=== PATIENT | male | born 1960 | race Caucasian/White ===

== ENCOUNTER → 2016-11-28 | Outpatient (CLI) | payer BC, OTHER ==
[2016-11-28 19:40] LABS: BLOOD UREA NITROGEN 22 mg/dl (7-18); CALCIUM 8.9 mg/dl (8.5-10.1); CARBON DIOXIDE 29 mmol/L (21-32); CHLORIDE 104 mmol/L (98-107); CREATININE 0.99 mg/dl (0.60-1.40); GLUCOSE 93 mg/dl (70-99); POTASSIUM 3.9 mmol/L (3.5-5.1); SODIUM 141 mmol/L (136-145)
[2016-11-28 20:44] LABS: CHOLESTEROL/HDL RATIO 3.7
== END | disposition home or self-care (01) ==
LOC: C.LABMFLN 11-27 13:51
PROVIDERS: ATTEND Family Medicine
DX: Z13.220 Encounter for screening for lipoid disorders (principal); Z12.5 Encounter for screening for malignant neoplasm of prostate; I10 Essential (primary) hypertension

== ENCOUNTER → 2017-09-19 | Outpatient (CLI) | payer BC ==
--- NOTE | 2017-09-19 08:27 | DIAGNOSTIC IMAGING REPORT ---
RIGHT SHOULDER 3 VIEWS HISTORY: RIGHT SHOULDER PAIN COMPARISON: None. FINDINGS: There is no fracture or dislocation. Soft tissues are unremarkable. No radiopaque foreign bodies. The right clavicle is intact. IMPRESSION: No significant abnormality within the right shoulder. Electronically signed by: Mohinder Ragsdale M.D. 09/19/2017 8:26 AM Dictated Date/Time: 09/19/2017 8:24 AM
== END | disposition home or self-care (01) ==
LOC: C.RDSM 11:48
PROVIDERS: ATTEND Family Medicine
DX: M25.511 Pain in right shoulder (principal)

== ENCOUNTER → 2017-09-28 | Outpatient (CLI) | payer BC ==
[~2017-09-28] MED LIST: GADAVIST IV PRN
--- NOTE | 2017-09-28 10:30 | DIAGNOSTIC IMAGING REPORT ---
R INJECTION SHOULDER PRE MRI FLUOROSCOPY TIME: 38 seconds CLINICAL HISTORY: 56 years-old Male with R SHOULDER PAIN. Acute right shoulder pain status post recent fall PROCEDURE: After obtaining written informed consent, the patient was placed supine on the fluoroscopy table. A suitable site for needle insertion was marked using fluoroscopic guidance. The right shoulder was prepped and draped in the usual sterile fashion. 1% lidocaine was used for skin, subcutaneous and deep soft tissue anesthesia. Under intermittent fluoroscopic guidance, a 22 gauge 2.5 inch spinal needle was inserted into the right glenohumeral joint. A total of 14 cc of one-to-one mixture of dilute Magnevist (0.1 cc in 10 cc saline) and Optiray 300 were injected. The needle was then removed. There were no apparent complications. The patient was transported to for further imaging. IMPRESSION: Fluoroscopic-guided right shoulder arthrogram without immediate complication. MR portion of the examination will be dictated separately. The above report was generated using voice recognition software. It may contain grammatical, syntax or spelling errors. Electronically signed by: Jorge Stevenson M.D. 09/28/2017 10:29 AM Dictated Date/Time: 09/28/2017 10:28 AM
--- NOTE | 2017-09-28 11:41 | DIAGNOSTIC IMAGING REPORT ---
R UPPER EXTREMITY JOINT W/ CLINICAL HISTORY: 56 years-old Male with R SHOULDER PAIN. Acute right shoulder pain with recent fall COMPARISON: Right shoulder radiographs 09/19/2017. TECHNIQUE: Multiplanar, multi sequence MRI of the right shoulder was performed following the intra-articular administration of solution containing 0.1 mL gadolinium. FINDINGS: ROTATOR CUFF: High-grade partial or full-thickness equivalent tear involves the insertional anterior and mid fibers of the supraspinatus, 1.3 x 2.1 cm in transverse and AP dimension as seen on images 8 through 12 of series 5 and image 6 of series 9 likely extending into the conjoined infraspinatus. There is intermediate grade bursal surface tearing of the infraspinatus tendon, 7 x 9 mm as seen on image 13 series 5 with intrasubstance extension nicely seen on the sagittal images. Moderate associated tendinosis. No muscular atrophy of the rotator cuff. Teres minor appears intact. There is at least moderate tendinosis of the subscapularis tendon with low-grade partial-thickness tearing noted involving the inferior insertional fibers as noted on image 11 series 9. Evaluation of the tear is difficult to evaluate secondary to injected contrast within this region. BICEPS TENDON: The longhead biceps tendon is intact. No evidence of tendinosis. The biceps daisy and anchor are intact. LABRUM: Tear of the anteroinferior quadrant labrum is noted without displaced fragment or paralabral cyst. GLENOHUMERAL JOINT: Mild glenohumeral osteoarthritis. No intra-articular loose body. Minimal subcortical cystic change of the humeral head. ACROMIOCLAVICULAR JOINT: Moderate, clavicular osteoarthritis with moderate subacromial/subdeltoid bursitis. Acromium has a gently curved undersurface. OUTLET SPACES: The suprascapular notch and quadrilateral space are without obstructing or space occupying lesions. BONE MARROW: No focal abnormality, fracture or marrow occupying lesion. SOFT TISSUES: The periarticular soft tissues are unremarkable. IMPRESSION: 1. High-grade partial/full thickness equivalent tear of the supraspinous tendon measures up to 1.3 x 2.1 cm. No significant retraction or muscular atrophy. 2. Intermediate grade bursal surface tear of the infraspinatus tendon. 3. Mild glenohumeral and moderate acromioclavicular osteoarthritis. 4. The lung head biceps tendon is intact. 5. Tear of the anteroinferior quadrant labrum without displaced fragment or paralabral cyst. The above report was generated using voice recognition software. It may contain grammatical, syntax or spelling errors. Electronically signed by: Jorge Stevenson M.D. 09/28/2017 11:40 AM Dictated Date/Time: 09/28/2017 11:10 AM
== END | disposition home or self-care (01) ==
LOC: C.MRIBC 09:35
PROVIDERS: ATTEND Family Medicine
DX: S46.911A Strain of unspecified muscle, fascia and tendon at shoulder and upper arm level, right arm, initial encounter (principal); X58.XXXA Exposure to other specified factors, initial encounter

== ENCOUNTER → 2017-10-20 | Outpatient (CLI) | payer BC ==
[~2017-10-20] MED LIST changes: +ALBU18002 INH; +FAMO20TA9 PO; -GADAVIST IV PRN; +MULT-506 PO; +OXYC-57 PO
== END | disposition home or self-care (01) ==
LOC: C.CPL 08:35
PROVIDERS: ATTEND Physician Assistant
DX: M75.100 Unspecified rotator cuff tear or rupture of unspecified shoulder, not specified as traumatic (principal); Z01.818 Encounter for other preprocedural examination

== ENCOUNTER → 2017-11-09 | Day surgery (SDC) | payer OTHER ==
[2017-10-05 15:20] VITALS: Ht 177.8 cm; Wt 86.4 kg
[~2017-11-09] VITALS: Ht 177.8 cm; Wt 86.4 kg
[~2017-11-09] MED LIST changes: +ATROPINE SULFATE 0.1 MG/ML 5ML SYR IV PRN; +CEFAZOLIN 2000MG IV PUSH 10 ML IV SCH; +CEFAZOLIN SOD 1 GM VIAL ONE; +DEXAMETHASONE SOD INJ 4 MG/ML VIAL ONE; +EpHEDrine SULFATE INJ 50 MG/ML AMP IV PRN; +EpINEphrine INJ 1MG/ML AMP 1 MG/ML AMP ONE; +FENTANYL CITRATE INJ 50 MCG/1 ML 2 ML VIAL IV PRN; +FENTANYL CITRATE INJ 50 MCG/1 ML 2 ML VIAL ONE; +GLYCOPYRROLATE INJ 0.2 MG/ML VIAL ONE; +LACTATED RINGER'S 1000ML 1,000 ML IV SCH; +LIDOCAINE HCL 2% 2 ML VIAL (20MG/ML) ONE; +LIDOCAINE/EPINEPHRINE 1% INJ 50 ML VIAL ONE; +MIDAZOLAM HCL 1 MG/ML 2ML VIAL ONE; +MoRPHine SULFATE 2 MG/ML CARP IV PRN; +MoRPHine SULFATE 4 MG/ML 1 ML CARP\\VIAL IV PRN; +NEOSTIGMINE METHYLSULFATE 5 MG/5 ML SYR ONE; +ONDANSETRON INJ 2 MG/ML 2 ML VIAL IV PRN; +ONDANSETRON INJ 2 MG/ML 2 ML VIAL ONE; +OXYCODONE/ACETAMINOPHEN 5-325 TAB PO PRN; +POVIDONE-IODINE OP SOLN 30 ML BTL ONE; +PROPOFOL IV EMULSION 10 MG/ML 20 ML VIAL IV ONE; +ROPIVACAINE 0.5% 5 MG/ML 30 ML VIAL ONE; +SODIUM CHLORIDE 0.9% 1000ML 1,000 ML IV SCH
--- NOTE | 2017-11-09 08:48 | History & Physical Bridge Note ---
H&P Re-Evaluation Bridge Note: I have examined the patient, reviewed the History & Physical and in the interval since the performance of the History & Physical I have noted the following changes of clinical significance: No changes noted
--- NOTE | 2017-11-09 13:44 | [facility] Post Operative Brief Note ---
Immediate Operative Summary Operative Date Nov 09, 2017. Pre-Operative Diagnosis Right shoulder rotator cuff tear Post-Operative Diagnosis same Procedure(s) Performed rotator cuff repait, coracoplasty, acromioplasty, biceps tenodesis Surgeon Commutator Undercutter Surgeon(s) Finesse SUE,gissell hemphill Estimated Blood Loss 50 Findings as above Specimens 0 Anesthesia General with block Complication(s) None Disposition Recovery Room / PACU
--- NOTE | 2017-11-09 14:14 | Discharge Instructions-SurgCtr ---
Discharge Instructions Date of Service Nov 09, 2017. Visit Reason for Visit: Right Shoulder Rotator Cuff Tear Discharge Discharge Diagnosis / Problem: Right shoulder rotator cuff tear Discharge Goals Goal(s): Decrease discomfort, Improve function, Increase independence Activity Recommendations Activity Limitations: per Instructions/Follow-up section Weightbearing Status: Right non-weightbearing (upper extremity) Anesthesia . Post Anesthesia Instructions: If you have had General Anesthesia or IV Sedation: * Do not drive today. * Resume driving when surgeon permits. * Do not make important decisions or sign legal documents today. * Call surgeon for: 1. Temperature elevations greater than 101 degrees F. 2. Uncontrollable pain. 3. Excessive bleeding. 4. Persistent nausea and vomiting. 5. Medication intolerance (nausea, vomiting or rash). * For nausea and vomiting use only clear liquids such as: tea, soda, bouillon until nausea subsides, then gradually increase diet as tolerated. * If you have any concerns or questions, call your surgeon's office. If physician is unavailable and it is an emergency, call 911 or go to the nearest emergency room. . Instructions / Follow-Up Instructions / Follow-Up The following are instructions to follow after "Shoulder Surgery" including, Acromioplasty, Rotator Cuff Repair and Instability Surgery ACTIVITY RECOMMENDATIONS: * Minimize activity after surgery. * No excessive walking, jogging, sports or laboring. * Return to activity is individualized depending on the patient and type of surgery. * Driving is not permitted until at least your first post operative visit. Please ask your doctor when it is safe to resume driving. * Expect increased discomfort with increased activity. Continue to ice the shoulder as needed. SCHOOL/WORK RECOMMENDATIONS: * You may return to sedentary work or school when you are feeling more comfortable. This is usually 3-7 days after surgery. MEDICATIONS: * You will have a prescription for pain medication and an anti-inflammatory medication after surgery. * Use the pain medication for severe pain and the anti-inflammatory for less severe pain. Once the pain medication has run out, try to use the anti-inflammatory medication. If this is not effective, contact the office for assistance. * The pain medication may cause nausea, constipation and drowsiness. You should see how they affect you before driving or similar activity. * The anti-inflammatory medication may cause stomach upset and bleeding. If this occurs let your doctor know immediately . * Take a stool softener like Colace or a laxative like Senokot to prevent constipation. DIET: * Resume previous diet. SPECIAL CARE: ICE: You have the option of an ice cooler, gel packs or ice bags. * If you have an ice cooler, refer to the instructions for that device. The ice cooler may be used continuously. * If you do not have an ice cooler, you will need to use ice bags or gel packs. Do not apply ice directly to the skin. Use a thin dressing or zion shirt between the skin and ice bag. Apply ice for 20-30 minutes and repeat every 2-4 hours. This is especially important for the first 7-10 days after surgery. Once the pain improves, use ice as needed. ELEVATION: * You may be more comfortable sleeping in an upright position. Use the sling to elevate your arm. DRESSING: * Your dressing will be changed at your first therapy appointment approximately 4-5 days after surgery. Band-aids, tape strips or gauze may be applied. You may then change your dressing daily. * Reapply dressing followed by the EBIce cooling pad (if chosen) and then the sling. * Always wash your hands prior to touching the incision area. * Once the stitches are removed, you may leave the wound open to air or cover with gauze. * Expect some bloody drainage for the first few days after surgery. * Leave the tape strips, if present, in place for 5-7 days. * Band-aids and gauze may be changed daily. * There may be a gauze pad in your armpit area. This can be changed daily or replaced by a dry washcloth. SLING/BRACE: * You will need to use a sling or brace after surgery. The length of time the sling is used is dependent upon the type of surgery performed. * Arthroscopic Acromioplasty requires use of the sling for 2-4 weeks for comfort. * Labral procedures and Rotator Cuff Repairs require use of the sling for a longer period of time. Please check with your doctor prior to discontinuing the sling. BATHING: * You may shower or sponge-bathe immediately after surgery. The post operative shoulder dressing is mostly water-tight. You may shower right over this dressing, but be reasonably careful not to get the gauze or incision wet. * Once the dressing has been changed on the fourth or fifth day after surgery, you may shower and get the incision wet. * Wash with regular soap and water. * Do not bathe (submerge the incision), soak, swim or use a hot tub until the incision is completely healed over with normal skin and the doctor has given the OK to proceed. * There is no need to apply any ointments, powders or salves to your incision. * Do not apply alcohol or hydrogen peroxide directly to the incision. * Diluted peroxide (50:50 mixture with sterile saline) may be used to clean dried blood from around the incision area. THERAPY: * You will begin therapy four or five days after surgery. * Organized therapy with the therapist is important for the first 2-4 months after surgery depending on the type of procedure. During that time you will attend therapy 1-3 times per week. * You will also need to do daily exercises for range of motion and strength as instructed. * Patients who have a Capsular Shift Procedure will need to abide by temporary range of motion limitations. * Patients having Rotator Cuff Surgery are not allowed to actively lift their arms until 4-6 weeks after surgery. * Please check with your doctor regarding appropriate motion restrictions. FOLLOW UP VISIT: * If not already scheduled, please call the office at to schedule a follow-up appointment for 10 days after surgery and monthly thereafter. * You have a physical therapy appointment on 11/13/17 at 10:30 a.m. * You have a follow up appointment with Dr. Tipton on 11/22/17 at 12:00 p.m. Diet Recommendations Home Diet: no limitations, resume previous diet Procedures Procedures Performed: Right Shoulder Arthroscopic Rotator Cuff Repair, Medium open rotator cuff repair, accromioplasty, coracoplasty, biceps tendodesis Pending Studies Studies pending at discharge: no Medical Emergencies . Who to Call and When: Medical Emergencies: If at any time you feel your situation is an emergency, please call 911 immediately. . Non-Emergent Contact Non-Emergency issues call your: Surgeon Call Non-Emergent contact if: temperature is above 101, your pain is not controlled, your pain is worsening, your pain is unusual for you, wound has increased drainage, wound has increased redness, wound has increased pain, you have any medication questions . . "Provider Documentation" section prepared by Dot Unger. . [place] Drug Monitoring Program Search Results: patient reviewed within database, no issues identified
--- NOTE | 2017-11-09 14:19 | [facility] Operative Report ---
Operative Report Operative Date Nov 09, 2017. Pre-Operative Diagnosis Right shoulder rotator cuff tear Post-Operative Diagnosis same Procedure(s) Performed Right Shoulder Arthroscopic Rotator Cuff Repair, Medium open rotator cuff repair, accromioplasty, coracoplasty, biceps tendodesis Surgeon Manager Functional Surgeon(s) Finesse SUE,gissell MANDUJANO Estimated Blood Loss 50ML Findings right shoulder rotator cuff tear Specimens None Drains None Anesthesia General with block Complication(s) None Disposition Recovery Room / PACU Indications Patient is a 57 year old male, s/p right shoulder injury. X-rays found a type 2 acromion and MRI found to have supraspinatus and subscapularis tears right shoulder. Surgical intervention recommended. Risks/complications discussed, informed consent obtained. Description of Procedure Patient was taken to the operating room, given IV Ancef for surgical prophylaxis. Time out performed, prepped and draped in routine sterile fashion. I was present during the entire case, please see Dr. Tipton's operative report for further detail. Patient was awakened and transferred to the recovery room in stable condition. I attest to the content of the Intraoperative Record and any orders documented therein. Any exceptions are noted below.
--- NOTE | 2017-11-09 14:33 | Anesthesia Progress Nt - [facility] ---
Anesthesia Post Op Note Date & Time Nov 09, 2017 at 14:32 Vital Signs Pain Intensity: 0 Vital Signs Past 12 Hours Date Time Temp Pulse Resp B/P (MAP) Pulse Ox O2 Delivery O2 Flow Rate FiO2 11/09/17 14:07 36.6 75 14 129/57 96 Diffusion Mask 6 11/09/17 09:07 0 11/09/17 09:05 135/86 11/09/17 09:02 59 0 100 11/09/17 09:02 58 11/09/17 09:00 145/85 11/09/17 08:57 55 7 100 11/09/17 08:57 55 11/09/17 08:56 145/88 11/09/17 08:56 58 17 145/88 (107) 98 Mask 6 11/09/17 08:52 64 11/09/17 08:42 65 11/09/17 08:37 57 11/09/17 08:32 59 11/09/17 07:18 36.6 62 18 139/87 (104) 96 Room Air Notes Mental Status: alert / awake / arousable, participated in evaluation Pt Amnestic to Procedure: Yes Nausea / Vomiting: adequately controlled Pain: adequately controlled Airway Patency, RR, SpO2: stable & adequate BP & HR: stable & adequate Hydration State: stable & adequate Anesthetic Complications: no major complications apparent
[2017-11-09 16:01] VITALS: BP 132/78; PULSE 86; TEMP 36.5; O2SAT 96
--- NOTE | 2017-11-09 18:53 | OPERATIVE REPORT ---
DATE OF OPERATION: 11/09/2017 PREOPERATIVE DIAGNOSIS: Right shoulder rotator cuff tear involving the supraspinatus and subscapularis. POSTOPERATIVE DIAGNOSIS: A 2.5 cm tear involving the supraspinatus and a 1.5 cm tear involving the upper border of the subscapularis. PROCEDURE: Shoulder arthroscopy, arthroscopic subacromial decompression of a large anterior acromial spur, arthroscopic double-row repair of the supraspinatus tendon tear, and mini open biceps tenodesis and subscapularis repair also done in a double-row fashion. Gentle manipulation of the shoulder. SURGEON: Dr. Tipton. GM MOBILE: Pastora Polanco, student, and Dot Unger, physician's store administrative assistant. No resident or fellow available. ANESTHESIA: General with interscalene block. INDICATION FOR PROCEDURE: The patient is a 57-year-old male who fell approximately 6 weeks ago and sustained what was likely a traumatic tear of his rotator cuff. He had some shoulder symptoms before and may have had some degree of rotator cuff pathology present before. He has difficulty lifting his arm secondary to pain. He has been evaluated clinically and with MRI. After reviewing his options, he had elected to proceed with operative intervention. PROCEDURE IN DETAIL: Informed consent was obtained. The patient was identified as Santos Escudero. He identified the operative site as the right shoulder. I marked with my initials and preop surgical timeout was performed. A preop dose of IV antibiotics was given. He was taken to the operating room, positioned supine on the operating room table after administration of the anesthetic. He was then positioned beach chair with neck held in neutral alignment using the Yamila body positioner. The torso was secured to the table. The ankles were padded, knees were flexed. Kidney rests were utilized and the mastoid processes were padded. 1% lidocaine with epinephrine was injected into the portal sites and subacromial space. DVT prophylaxis with foot pumps intraoperatively and early mobility after surgery. The examination under anesthesia revealed a minor global loss of range of motion. He had perhaps 160 degrees of forward elevation compared to about 175 on the opposite side. He had about 20 degrees of external rotation compared to about 45 on the opposite side. I performed a gentle manipulation of the shoulder. The arm was manipulated up into extension to recover about 15-20 degrees of terminal end motion. I then manipulated the arm to side to recover external rotation. I then manipulated internal rotation, followed by both internal and external rotation throughout the range of abduction. This resulted in episcopalian of full and unrestricted motion equal to the opposite side. There was more of a stretching phenomenon rather than a tearing or popping like it is typically seen with adhesive capsulitis. The right upper extremity was prepped and draped in usual sterile fashion. His internal rotation and mid abduction was about 30 degrees and this was improved to about 45 degrees with gentle manipulation. A posterior soft spot viewing portal was established, followed by an anterior mid glenoid working portal. The articular surfaces of the glenoid and humeral head were normal. There was a complete tear of the upper portion of the subscapularis tendon for about a centimeter or slightly more. Debridement was performed. A large tear involving the supraspinatus, crescent in shape, was noted and debrided. The infraspinatus and teres minor were intact, normal bare area, normal axillary pouch. Minimal synovitis except for the posterior capsule and rotator interval. The scope was placed anteriorly and the posterior capsular structures were evaluated. There was some synovitis along the posterior labrum which was intact. There was no labral tear but there was a small cartilage defect, 0.5 cm in size, anterior mid glenoid. In order to mobilize the rotator cuff, I released the posterior capsule arthroscopically with a shaver. I carried this up underneath the supraspinatus, releasing the synovial reflection but not going any further than about a centimeter from the glenoid margin. There was no Hill-Sachs lesion, loose body or bony Bankart. I placed a tagging stitch into the subscapularis after switching the scope to the posterior portal. I then carefully mobilized on its superior and posterior surfaces. I cut the middle glenohumeral ligament and used an elevator and shaver. I did not mobilize significantly on the anterior surface at this time. A biceps tenotomy was performed. I later released the entire rotator interval and did a rotator interval slide. I released the coracohumeral ligament and its attachments to the supraspinatus tendon under direct visualization at the level of the coracoid and slightly posterior. The scope was placed in the subacromial space and accessory lateral portal was created. There was significant subacromial bursitis which was thoroughly debrided. The rotator cuff was noted and found to be, after mobilization, adequately mobile for repair. There was a small split going back between the anatomic supraspinatus and infraspinatus tendons. I performed a thorough bursectomy, and using the traction from a grasper, I was able to resect any adhesions in the subacromial space again back to the level of the coracoid. Very significant bursitis was noted and debrided. The patient had a very large anterior acromial spur seen on preoperative imaging. The undersurface of the acromion was denuded of soft tissue, the coracoacromial ligament was released. I then brought the bur in laterally and eliminated about 2-3 mm of lateral overhang from anterior to about the mid portion of the acromion. I then brought the bur in posteriorly and performed a modified cutting block acromioplasty. I determined the orientation of the acromion, I made an anchoring sweep about 1.5 cm posterior to the leading edge. I then went anterior and inferior and beveled that osteophyte from inferior all the way up to the level of my anchoring lise. This was then smoothed from back to front and then from medial to lateral. Deltoid fibers were noted. The shaver was run through the shoulder to order picker loose debris. The rotator cuff was mobilized. The greater tuberosity was prepared with curette and bur. I placed 2 anchors initially, a 4.5 mm diameter corkscrew PEEK anchor posteriorly and a 5.5 PEEK corkscrew anchor anteriorly. The Arigoion suture passer was utilized to pass the stitches in a horizontal mattress fashion, taking care to reduce posterior delamination and also incorporate a stitch across the split between the 2 tendons which went back about a centimeter. This was a crescent-type tear with posterior retraction and I brought it anteriorly out onto the greater tuberosity. The stitches were passed in a horizontal mattress fashion with at least a centimeter of tendon in between the stitches. Suture management was performed. A cuff grasper was utilized to reduce the cuff in the tendon. The sutures were then tied using a modified [place] knot backed up with reverse half stitches on alternating posts. One of the posterior stitches did not slide and it was fixated with the SCOI knot. This resulted in excellent repair. I then went ahead and placed a lateral row anchor, a 5.5 mm BioComposite SwiveLock. This was placed about a centimeter down off the greater tuberosity. I brought 5 of the suture strands, the 2 most posterior ones and then 1 from each of the anterior anchors, passed it through the SwiveLock after using the punch and secured it in place. I used a traction stitch from the SwiveLock to tie down a dog ear posteriorly. The arthroscopic instruments were removed from the shoulder. The portals were closed with 4-0 nylon. The surgeon and assistants changed their gloves. The shoulder was re-prepped with ChloraPrep. I then made an 8 cm incision using the anterior portal, this was done for a deltopectoral approach. Blunt dissection was performed to subcutaneous tissues. The deltopectoral interval was identified and divided in line with its orientation, retracting the cephalic vein laterally. Significant subscapularis bursitis was noted and thoroughly debrided. The biceps tendon was identified and the biceps sheath was opened. A 4.5 mm PEEK TwinFix anchor was then utilized to tenodese the biceps tendon at about the mid portion of the subscapularis tendon. I identified my traction stitch and found the upper rolled border of the subscapularis which was retracted about 1.5 cm. I then found that the remainder of the inferior tendon was very well attached and not torn. I was able to stick my finger inside the joint and actually feel the tendon. I had concerns that this tendon was partially torn and detached medially; however, it had at this point normal appearing attachment. I identified the axillary nerve by palpation. I used a Smyth elevator on the superior and posterior surface of the subscapularis tendon to improve mobility. I did digital dissection on the anterior surface. The subscapularis tendon was adequately mobilized. I put a single 5.5 mm suture anchor into the upper portion of the subscapularis footprint. There was a 1 to 1.5 cm full-thickness upper border subscapularis tear. The attachment was denuded of soft tissue using a curette and rongeur. The anchor was inserted and then passed in a horizontal mattress fashion and tied. I then took these 4 sutures and double-row repair by placing a 4.75 SwiveLock anchor at the upper border of the bicipital tuberosity and secured this in place. I subsequently used the stitches from the biceps tenodesis to incorporate the biceps sheath and repaired over top of biceps tendon. The biceps groove was denuded off tissue down to excoriated bone. Copious irrigation was performed. Betadine lavage was performed. I did palpate and noted that the coracoid might have been slightly prominent. I performed a posterior coracoplasty using an oscillating saw and then beveled with a Tiemann rasp. I could insert my index finger between the subscap and coracoid with minimal pressure. I was able to identify the repair at supraspinatus tendon. I palpated the undersurface of the acromioplasty. I beveled this with a Tiemann rasp. There was a small anterior lip which I removed with a rongeur and the rasp. The deltopectoral interval was closed with running #1 Vicryl. The subcutaneous tissues were closed with 2-0 Vicryl and maryellen. The arm was cleaned with wet and dry sponges. A dry sponge was placed in the armpit. A soft sterile dressing was applied along with an UltraSling. The arm could easily be externally rotated to 20 degrees. The subscapularis repair was performed with the arm abducted and slightly internally rotated. The patient was then awakened from anesthesia without any difficulty and taken to the recovery room in stable condition. There were no specimens. The remainder of the biceps tendon appeared normal and it was resected and not sent for specimen. There were no complications. Counts were correct at the end of the case. Blood loss was approximately 50 mL. At the conclusion of the operation, I spoke to the patient's and informed her of my findings, detailed postoperative instructions were given. He will be rehabilitated according to the rotator cuff repair protocol. He will do passive movement of the elbow and shoulder. External rotation will be to 0 degrees. In order to help prevent recurrent stiffness as well as mobilize the subscapularis, the middle glenohumeral ligament was transected and debrided with the shaver. I attest to the content of the Intraoperative Record and any orders documented therein. Any exception s are noted below.
== END | disposition home or self-care (01) ==
LOC: X.SURG 07:04
PROVIDERS: ATTEND Physical Medicine & Rehabilitation Sports Medicine
DX: S46.011A Strain of muscle(s) and tendon(s) of the rotator cuff of right shoulder, initial encounter (principal); W01.0XXA Fall on same level from slipping, tripping and stumbling without subsequent striking against object, initial encounter; W10.9XXA Fall (on) (from) unspecified stairs and steps, initial encounter; Y99.8 Other external cause status; Y92.009 Unspecified place in unspecified non-institutional (private) residence as the place of occurrence of the external cause; J45.909 Unspecified asthma, uncomplicated; K21.9 Gastro-esophageal reflux disease without esophagitis; F17.210 Nicotine dependence, cigarettes, uncomplicated

== ENCOUNTER → 2017-11-22 | Outpatient (CLI) | payer OTHER ==
[~2017-11-22] MED LIST changes: -ATROPINE SULFATE 0.1 MG/ML 5ML SYR IV PRN; -CEFAZOLIN 2000MG IV PUSH 10 ML IV SCH; -CEFAZOLIN SOD 1 GM VIAL ONE; -DEXAMETHASONE SOD INJ 4 MG/ML VIAL ONE; -EpHEDrine SULFATE INJ 50 MG/ML AMP IV PRN; -EpINEphrine INJ 1MG/ML AMP 1 MG/ML AMP ONE; -FENTANYL CITRATE INJ 50 MCG/1 ML 2 ML VIAL IV PRN; -FENTANYL CITRATE INJ 50 MCG/1 ML 2 ML VIAL ONE; -GLYCOPYRROLATE INJ 0.2 MG/ML VIAL ONE; -LACTATED RINGER'S 1000ML 1,000 ML IV SCH; -LIDOCAINE HCL 2% 2 ML VIAL (20MG/ML) ONE; -LIDOCAINE/EPINEPHRINE 1% INJ 50 ML VIAL ONE; -MIDAZOLAM HCL 1 MG/ML 2ML VIAL ONE; -MoRPHine SULFATE 2 MG/ML CARP IV PRN; -MoRPHine SULFATE 4 MG/ML 1 ML CARP\\VIAL IV PRN; -NEOSTIGMINE METHYLSULFATE 5 MG/5 ML SYR ONE; -ONDANSETRON INJ 2 MG/ML 2 ML VIAL IV PRN; -ONDANSETRON INJ 2 MG/ML 2 ML VIAL ONE; -OXYCODONE/ACETAMINOPHEN 5-325 TAB PO PRN; -POVIDONE-IODINE OP SOLN 30 ML BTL ONE; -PROPOFOL IV EMULSION 10 MG/ML 20 ML VIAL IV ONE; -ROPIVACAINE 0.5% 5 MG/ML 30 ML VIAL ONE; -SODIUM CHLORIDE 0.9% 1000ML 1,000 ML IV SCH
== END | disposition home or self-care (01) ==
LOC: C.RDSM 16:44
PROVIDERS: ATTEND Physical Medicine & Rehabilitation Sports Medicine
DX: S46.011D Strain of muscle(s) and tendon(s) of the rotator cuff of right shoulder, subsequent encounter (principal); X58.XXXD Exposure to other specified factors, subsequent encounter